=== PATIENT | female | born 1945 | race Caucasian/White ===

== ENCOUNTER 2023-03-26 13:41 | Emergency (ER) | payer MEDICARE, OTHER ==
[~2023-03-26] VITALS: Ht 154.9 cm; Wt 56.1 kg
[2023-03-26] MEDS ORDERED: ALLE24TA7 PO (13:51)
[2023-03-26 14:10] LABS: VENOUS BASE EXCESS -1.6 (-2.0-2.0); VENOUS HCO3 24.9 MMOL/L (23.0-27.0); VENOUS O2 SATURATION 59.6 % (60.0-80.0); VENOUS PARTIAL PRESSURE CO2 49.4 mmHg (38.0-50.0); VENOUS PARTIAL PRESSURE O2 34.8 mmHg (30.0-50.0); VENOUS STANDARD HCO3 22.3 MMOL/L; VENOUS TOTAL CO2 26.4 MMOL/L (24.0-28.0)
[2023-03-26 14:16] LABS: BASO % 0.5 % (0.0-1.0); EOS # 0.3 10^3/uL (0.0-0.5); EOS % 4.9 % (0.0-3.0); HEMATOCRIT 35.3 % (36.0-47.0); HEMOGLOBIN 11.1 g/dl (12.0-15.5); LYMPH # 1.4 10^3/uL (1.5-5.0); MEAN CORPUSCULAR HEMOGLOBIN 29.4 pg (27.0-33.0); MEAN CORPUSCULAR HGB CONC 31.4 g/dl (32.0-36.5); MEAN CORPUSCULAR VOLUME 93.4 fl (80.0-96.0); MONO # 0.4 10^3/uL (0.0-0.8); MONO % 6.5 % (2.0-8.0); NEUTROPHILS # 3.8 10^3/uL (1.5-8.5); NEUTROPHILS % 64.9 % (36.0-66.0); PLATELET COUNT, AUTOMATED 258 10^3/uL (150-450); RED BLOOD COUNT 3.78 10^6/uL (4.00-5.40); WHITE BLOOD COUNT 5.9 10^3/uL (4.0-10.0)
[2023-03-26 14:21] LABS: INR 0.99; PROTHROMBIN TIME 12.8 SECONDS (12.5-14.5)
[2023-03-26 14:26] LABS: CK-MB VALUE MASS 1.7 NG/ML (<3.6)
[2023-03-26 14:27] LABS: LIPASE 36 U/L (12-53)
[2023-03-26 14:29] LABS: ALBUMIN 3.8 G/DL (3.2-5.2); ALKALINE PHOSPHATASE 78 U/L (46-116); ALT/SGPT 14 U/L (7.0-40); AST/SGOT 15 U/L (<34); BILIRUBIN,DIRECT 0.2 MG/DL (<0.4); BILIRUBIN,TOTAL 0.6 MG/DL (0.3-1.2); BLOOD UREA NITROGEN 16 MG/DL (9-23); CALCIUM LEVEL 9.6 MG/DL (8.3-10.6); CARBON DIOXIDE LEVEL 27 MMOL/L (20-31); CHLORIDE LEVEL 106 MMOL/L (98-107); CREATININE FOR GFR 0.66 MG/DL (0.55-1.30); GLOMERULAR FILTRATION RATE > 60.0 (>39); GLUCOSE, FASTING 115 MG/DL (74-106); POTASSIUM SERUM 4.4 MMOL/L (3.5-5.1); SODIUM LEVEL 142 MMOL/L (136-145); TOTAL PROTEIN 6.5 G/DL (5.7-8.2)
[2023-03-26 14:30] LABS: THYROID STIMULATING HORMONE 1.267 uIU/ML (0.55-4.78)
[2023-03-26 14:33] LABS: CPK CREATINE PHOSPHOKINASE 68 U/L (34-145)
[2023-03-26 14:54] LABS: PARTIAL THROMBOPLASTIN TIME < 24.8 SECONDS (24.8-34.2)
[2023-03-26] MEDS ORDERED: ISOVUE-370 76% 100ML VIAL As Ordered ONE (15:21)
[2023-03-26 15:25] LABS: CK-MB VALUE MASS 3.6 NG/ML (<3.6)
[2023-03-26] MEDS ORDERED: NITROGLYCERIN 2% OINT 1 GM *U/D* PKT TOP ONE (15:30)
[2023-03-26 15:31] LABS: MB/CK RELATIVE INDEX 4.39 (< OR =4)
[2023-03-26 15:33] LABS: RSV AMPLIFICATION NEGATIVE (NEGATIVE)
[2023-03-26] MEDS ORDERED: HEPARIN DRIP 25,000 UNITS in IV 1 EA IV SCH (15:45)
[2023-03-26] MEDS ORDERED: HEPARIN SOD (PORCINE) 5000UNITS/ML 1ML VIAL/SYRINGE IV ONE (15:45)
[2023-03-26 15:58] VITALS: BP 149/73
[2023-03-26 16:52] VITALS: BP 159/92; TEMP 97.3; O2SAT 99
== END 2023-03-26 16:55 | disposition short-term general hospital (02) ==
LOC: M ED 13:41 → EDBD 13:41 → M ED 16:55
DX: I21.4 Non-ST elevation (NSTEMI) myocardial infarction (principal)
CPT/HCPCS: 71045; 71275; 80047; 80048; 80076; 82550; 82553; 82803; 83605; 83690; 83880; 84443; 84484; 85025; 85610; 85730; 87040; 87507; 87631; 93005; 93041; 94760; 96365; 99285; Q9967